=== PATIENT | male | born 1985 | race African-American/Black ===

== ENCOUNTER 2021-08-29 15:46 | Emergency (ER) | payer MEDICAID ==
--- NOTE | 2021-08-29 17:07 | CR ---
INDICATION: sob/hx of asthma and bronchitis TECHNIQUE: Chest 1 view. COMPARISON: None. FINDINGS: Cardiovascular and mediastinum: Heart size and vasculature are normal in caliber and appearance. Mediastinum is within normal limits. Lungs and pleural space: Lungs are clear. No sign of infiltrate or mass. No sign of pleural effusion. No pneumothorax. Bones and soft tissues: No significant findings. IMPRESSION: Unremarkable chest. Dictated by: Cruzito Cordero MD @ 08/29/2021 17:05:53 (Electronically Signed)
--- NOTE | 2021-08-29 17:09 | EDM.PDOC ---
ED HPI GENERAL MEDICAL PROBLEM - General Chief Complaint: Respiratory Problem Stated Complaint: SOB Time Seen by Provider: 08/29/21 16:33 Source of Information: Reports: Patient History Limitations: Reports: No Limitations - History of Present Illness INITIAL COMMENTS - FREE TEXT/NARRATIVE: HISTORY AND PHYSICAL: History of present illness: Patient is a 36-year-old male who presents to the emergency room with complaints of shortness of breath. He states he does have a history of of asthma, he has been out of his medications and feels like his symptoms are due to an exacerba tion. Patient denies any fever, chills, headache, change in vision, syncope or near syncope. Denies any chest pain, back pain or cough. Denies any abdominal pain, nausea, vomiting, diarrhea, constipation or dysuria. Has not noted any blood in urine or stool. Patient has been eating and drinking appropriately. No recent travel or sick contacts. Review of systems: As per history of present illness and below otherwise all systems reviewed and negative. Past medical history: As per history of present illness and as reviewed below otherwise noncontributory. Surgical history: As per history of present illness and as reviewed below otherwise noncontributory. Social history: See social history for further information Family history: As per history of present illness and as reviewed below otherwise noncontributory. Physical exam: General: Well developed and well nourished 36-year-old male. Alert and orientated x 3. Nontoxic in appearance and in no acute distress. Vital signs are stable and have been reviewed by me. Nursing notes were reviewed. HEENT: Atraumatic, normocephalic, pupils equal and reactive bilaterally, negative for conjunctival pallor or scleral icterus, mucous membranes moist, TMs normal bilaterally, throat clear, neck supple, nontender, trachea midline. No drooling or trismus noted. No meningeal signs. No hot potato voice noted. Lungs: Fine expiratory wheezing to auscultation bilaterally. No rales, or rhonchi. Chest nontender. Normal work of breathing, no accessory muscles used. Heart: S1S2, regular rate and rhythm without overt murmur, gallops, or rubs. No JVD. No peripheral edema Abdomen: Soft, nondistended, nontender. Hematologic: No petechiae or purpra. Mucosa appropriate color and normal nail bed color and refill. Extremities: Atraumatic, moves all extremities per self without difficulty or deficits, negative for cords or calf pain. Neurovascular unremarkable. Neuro: Awake, alert, oriented. Cranial nerves II through XII unremarkable. Cerebellum unremarkable. Motor and sensory unremarkable throughout. Exam nonfocal. Psychiatric: Mood and affect are appropriate. Normal thought process. Answering questions appropriately. Please note that the patient was seen and evaluated during the 2019 SARS-CoV-2 novel coronavirus pandemic period. Community viral transmission is ongoing at time of this encounter and the emergency department is operating under pandemic response procedures. Medical Decision Making: Patient is a 36-year-old male who presents to the emergency room with complaints of shortness of breath, concern of an asthma exacerbation. Chest x-ray is unremarkable. Patient declines COVID-19 testing. He states he is out of his rescue inhaler and nebulizer solution. Is requesting refill on this at this time. I have talked with the patient about today's findings, in addition to providing specific details for plan of care. Reassessment at the time of disposition demonstrates that the patient is in no acute distress. The patient is stable for discharge, counseling was provided and we discussed in great detail signs and symptoms that would prompt them to return to the Emergency Department. Medication, follow up and supportive care measures were reviewed and discussed. Voices understanding and is agreeable to plan of care. Denies any further questions or concerns at this time. Diagnostics: Chest x-ray Therapeutics: None Prescription: Prednisone, DuoNeb, albuterol inhaler Impression: Asthma exacerbation Medication refill Plan: 1. You were evaluated today on an emergent basis. Your asthma appears to be ex acerbated. Please take the steroids and use the inhaler as directed. 2. You can alternate Tylenol and ibuprofen as needed for pain and fever management. 3. We encourage you to follow up with your primary care provider and/or recommended specialist in the next few days for re-evaluation and further care/management. 4. If your symptoms should worsen, new symptoms develop or any of the signs and symptoms we discussed should arise please return to the emergency room or call 911 (if needed). Definitive disposition and diagnosis as appropriate pending reevaluation and review of above. - Related Data Allergies Allergy/AdvReac Type Severity Reaction Status Date / Time No Known Allergies Allergy Verified 08/29/21 16:53 Home Meds: Home Meds Albuterol Sulfate 08/29/21 [History] Albuterol Sulfate [Proair Hfa] 2 puff IH Q4H PRN #1 [email or web address] 08/29/21 [Rx] Albuterol/Ipratropium [DuoNeb 3.0-0.5 MG/3 ML] 1 ampule INH Q4HR PRN #1 box 08/29/21 [Rx] predniSONE [Prednisone] 40 mg PO DAILY 4 Days #8 tablet 08/29/21 [Rx] Social & Family History - Tobacco Use Second Hand Smoke Exposure: No - Caffeine Use Caffeine Use: Reports: None - Recreational Drug Use Recreational Drug Use: No ED ROS GENERAL - Review of Systems Review Of Systems: Comprehensive ROS is negative, except as noted in HPI. ED EXAM, GENERAL - Physical Exam Exam: See Below (See dictation) Course - Vital Signs Last Recorded V/S: Last Vital Signs Temp 98 F 08/29/21 16:51 Pulse 89 08/29/21 16:51 Resp 20 08/29/21 16:51 BP 138/73 08/29/21 16:51 Pulse Ox 97 08/29/21 16:51 Departure - Departure Time of Disposition: 17:37 Disposition: Home, Self-Care 01 Clinical Impression: Exacerbation of asthma Qualifiers: Asthma severity: moderate Asthma persistence: persistent Qualified Code(s): J45.41 - Moderate persistent asthma with (acute) exacerbation - Discharge Information Prescriptions: Albuterol/Ipratropium [DuoNeb 3.0-0.5 MG/3 ML] 1 ampule INH Q4HR PRN #1 box PRN Reason: Dyspnea predniSONE [Prednisone] 40 mg PO DAILY 4 Days #8 tablet Albuterol Sulfate [Proair Hfa] 2 puff IH Q4H PRN #1 hfa.[email or web address] PRN Reason: Dyspnea Instructions: Asthma, Adult, [id number] Referrals: PCP,None [Primary Care Provider] - Forms: ED Department Discharge Additional Instructions: The following information is given to patients seen in the emergency department who are being discharged to home. This information is to outline your options for follow-up care. We provide all patients seen in our emergency department with a follow-up referral. The need for follow-up, as well as the timing and circumstances, are variable depending upon the specifics of your emergency department visit. If you don't have a primary care physician on staff, we will provide you with a referral. We always advise you to contact your personal physician following an emergency department visit to inform them of the circumstance of the visit and for follow-up with them and/or the need for any referrals to a consulting specialist. The emergency department will also refer you to a specialist when appropriate. This referral assures that you have the opportunity for follow-up care with a specialist. All of these measure are taken in an effort to provide you with optimal care, which includes your follow-up. Under all circumstances we always encourage you to contact your private physician who remains a resource for coordinating your care. When calling for follow-up care, please make the office aware that this follow-up is from your recent emergency room visit. If for any reason you are refused follow-up, please contact the [facility] Emergency Department at and asked to speak to the emergency department charge nurse. [facility] [address] [place] [id number] [address] Thank you for choosing the [facility] emergency department in [place] for your medical needs today. It was a pleasure caring for you. Today you were seen in the emergency department for asthma flare Your prescription was electronically sent to: [place] [facility] ([facility]) 1. You were evaluated today on an emergent basis. Your asthma appears to be exacerbated. Please take the steroids and use the inhaler as directed. 2. You can alternate Tylenol and ibuprofen as needed for pain and fever management. 3. We encourage you to follow up with your primary care provider and/or recommended specialist in the next few days for re-evaluation and further care/management. 4. If your symptoms should worsen, new symptoms develop or any of the signs and symptoms we discussed should arise please return to the emergency room or call 911 (if needed). Sepsis Event Note (ED) - Evaluation Sepsis Screening Result: No Definite Risk - Focused Exam Vital Signs: Vital Signs Temp Pulse Resp BP Pulse Ox 08/29/21 16:51 98 F 89 20 138/73 97
== END 2021-08-29 17:41 | disposition home or self-care (01) ==
LOC: MW.ED 15:46
DX: J45.41 Moderate persistent asthma with (acute) exacerbation (principal); Z76.0 Encounter for issue of repeat prescription
CPT/HCPCS: 71045; 71045-26; 99284-25

== ENCOUNTER 2022-01-22 18:47 | Emergency (ER) | payer MEDICAID ==
[2022-01-22] MEDS ORDERED: Albuterol/Ipratropium 3.0-0.5 MG/3 ML Neb Soln NEB ONE ×3 (19:25)
[2022-01-22] MEDS ORDERED: Alum Hydro/Mag Hydro/Simeth XS 15 ML, Lidocaine 2% 5 ML PO ONE ×2 (19:26)
[2022-01-22] MEDS ORDERED: predniSONE 20 MG Tab PO ONE (19:26)
== END 2022-01-22 21:29 | disposition home or self-care (01) ==
LOC: MW.ED 18:47
DX: J45.901 Unspecified asthma with (acute) exacerbation (principal); R12 Heartburn
CPT/HCPCS: 99284; A9270; J7620-GY

== ENCOUNTER 2022-04-18 14:48 | Emergency (ER) | payer MEDICAID | END 2022-04-18 15:47 | disposition home or self-care (01) | LOC: MW.ED 14:48 | DX: J45.901 Unspecified asthma with (acute) exacerbation (principal); F17.210 Nicotine dependence, cigarettes, uncomplicated | CPT/HCPCS: 99283 ==

== ENCOUNTER 2023-10-26 08:55 | Emergency (ER) | payer MEDICAID ==
[2023-10-26 09:57] LABS: CORONAVIRUS COVID-19 NAA NEGATIVE (NEGATIVE); INFLUENZA A NAA POSITIVE (NEGATIVE); INFLUENZA B NAA NEGATIVE (NEGATIVE)
== END 2023-10-26 10:46 | disposition home or self-care (01) ==
LOC: MW.ED 08:55
DX: J10.1 Influenza due to other identified influenza virus with other respiratory manifestations (principal); J45.909 Unspecified asthma, uncomplicated; Z20.822 Contact with and (suspected) exposure to COVID-19
CPT/HCPCS: 0240U; 71045; 99283

== ENCOUNTER 2023-11-05 09:45 | Day surgery (SDC) | payer MEDICAID ==
[2023-11-05] MEDS ORDERED: Sodium Chloride 0.9% 1,000 ML IV ONE (10:03)
[2023-11-05 10:16] LABS: HEMATOCRIT 43.7 % (42.0-52.0); HEMOGLOBIN 14.7 g/dL (14.0-18.0); MEAN CORPUSCULAR HEMOGLOBIN 25.9 pg (28.0-32.0); MEAN CORPUSCULAR HGB CONC 33.6 g/dL (32.0-36.0); MEAN CORPUSCULAR VOLUME 76.9 fL (83.0-99.0); MEAN PLATELET VOLUME 9.2 fL (9.4-12.4); PLATELET COUNT,PLT 327 K/uL (150-400); RED BLOOD CELL COUNT 5.68 M/uL (4.52-5.90); WHITE BLOOD CELL COUNT,WBC 12.19 K/uL (3.9-11.3)
[2023-11-05] MEDS ORDERED: Amoxicillin/Clavulanate K 875-125 MG Tab PO ONE (10:40)
[2023-11-05 10:41] LABS: BAND ABSOLUTE MAN 0.12; BAND PERCENT MAN 1 %; BASOPHILS ABSOLUTE MAN 0.12 K/uL (0.00-0.20); BASOPHILS PERCENT MAN 1 % (0-1); LYMPHOCYTES ABSOLUTE MAN 2.32 K/uL (1.00-4.80); LYMPHOCYTES PERCENT MAN 19 % (24-44); MONOCYTES ABSOLUTE MAN 2.32 K/uL (0.00-0.80); MONOCYTES PERCENT MAN 19 % (0-8); REACTIVE LYMPHOCYTES FEW; SEG NEUTROPHILS ABSOLUTE MAN 7.31 K/uL (1.80-7.70); SEG NEUTROPHILS PERCENT MAN 60 % (41-71)
[2023-11-05 10:47] LABS: A/G RATIO 0.9 (0.9-1.6); ALBUMIN 3.6 g/dL (3.4-5.0); BILIRUBIN TOTAL 0.6 mg/dL (0.2-1.0); CALCIUM 9.1 mg/dL (8.5-10.1); CARBON DIOXIDE,CO2 26.1 mmol/L (21.0-32.0); CREATININE 1.3 mg/dL (0.8-1.3); EST CRCL DRUG DOSING (CG) 70.62 mL/min; POTASSIUM,K 4.4 mmol/L (3.5-5.1); PROTEIN TOTAL,TP 7.4 g/dL (6.4-8.2)
[2023-11-05] MEDS ORDERED: Iopamidol 755 MG/ML 500 ML Multipack Bottle IVPUSH STA (10:56)
[2023-11-05] MEDS ORDERED: Piperacillin/Tazobactam 3.375 GM in Sodium Chloride 0.9% 100 ML IV ONE (13:27)
[2023-11-05] MEDS ORDERED: Lactated Ringers 1,000 ML IV SCH ×2 (13:45→15:30)
[2023-11-05] MEDS ORDERED: Ketorolac 30 MG/ML SDV ONE (13:53)
[2023-11-05] MEDS ORDERED: Dexamethasone 4 MG/ML 5 ML MDV ONE (13:53)
[2023-11-05] MEDS ORDERED: Lidocaine 2% 11 ML Jelly Filled Syringe ONE (13:53)
[2023-11-05] MEDS ORDERED: Lidocaine 2% 5 ML SDV ONE (13:53)
[2023-11-05] MEDS ORDERED: Propofol 200 MG/20 ML SDV ONE (13:53)
[2023-11-05] MEDS ORDERED: fentaNYL 100 MCG/2 ML SDV ONE (13:53)
[2023-11-05] MEDS ORDERED: Ondansetron 4 MG/2 ML SDV ONE (13:53)
[2023-11-05] MEDS ORDERED: Metoclopramide 10 MG/2 ML SDV IVPUSH PRN (14:04)
[2023-11-05] MEDS ORDERED: HYDROmorphone 1 MG/ML Syringe IVPUSH PRN (14:04)
[2023-11-05] MEDS ORDERED: Albuterol 0.083% 2.5 MG/3 ML Neb Soln NEB PRN ×2 (14:04→16:16)
[2023-11-05] MEDS ORDERED: Naloxone 0.4 MG/ML SDV IVPUSH PRN (14:04)
[2023-11-05] MEDS ORDERED: fentaNYL 50 MCG/ML SDV IVPUSH PRN (14:04)
[2023-11-05] MEDS ORDERED: Ondansetron 4 MG/2 ML SDV IVPUSH PRN (14:04)
[2023-11-05] MEDS ORDERED: Morphine 2 MG/ML SYRINGE IVPUSH PRN ×2 (14:04→15:34)
[2023-11-05] MEDS ORDERED: droPERidol 5 MG/2 ML SDV IVPUSH PRN (14:04)
[2023-11-05] MEDS ORDERED: Acetaminophen/HYDROcodone 325-5 MG Tab PO PRN (15:33)
== END 2023-11-05 18:05 | disposition home or self-care (01) ==
LOC: MW.ED 09:45 → MW.SDS 13:51 → MW.MS 13:53 → MW.SDS 18:05
PROVIDERS: ATTEND Surgery
DX: K61.1 Rectal abscess (principal); K61.0 Anal abscess; J45.909 Unspecified asthma, uncomplicated; F17.210 Nicotine dependence, cigarettes, uncomplicated; Z79.899 Other long term (current) drug therapy
CPT/HCPCS: 36415; 46040; 74177; 80053; 85025; 87070; 87075; 87077; 87186; 87205; 96361; 96365; 99284; A9270; J0131; J1885; J2543; J2704; J3010; J3490; J7030; Q9967; 00902; J1100; J2405; J7620-GY

== ENCOUNTER 2024-08-27 11:24 | Emergency (ER) | payer SELFPAY ==
[2024-08-27] MEDS: Sodium Chloride 0.9% 10 ML Syringe FLUSH PRN (13:01)
[2024-08-27] MEDS: Morphine 4 MG/ML Syringe IVPUSH ONE ×2 (13:01→15:28)
[2024-08-27] MEDS: Sodium Chloride 0.9% 2.5 ML Syringe FLUSH PRN (13:01)
[2024-08-27 13:02] LABS: BASOPHILS ABSOLUTE AUTO 0.02 K/uL (0.00-0.20); BASOPHILS PERCENT AUTO 0.2 % (0.0-1.0); EOSINOPHILS PERCENT AUTO 0.9 % (0.0-6.0); HEMATOCRIT 42.3 % (42.0-52.0); IMMATURE GRAN ABSOLUTE AUTO 0.02 K/uL (0.00-0.05); IMMATURE GRAN PERCENT AUTO 0.2 % (0.0-0.4); LYMPHOCYTES ABSOLUTE AUTO 1.74 K/uL (1.00-4.80); MEAN CORPUSCULAR HEMOGLOBIN 25.4 pg (28.0-32.0); MEAN CORPUSCULAR HGB CONC 33.1 g/dL (32.0-36.0); MEAN CORPUSCULAR VOLUME 76.8 fL (83.0-99.0); MEAN PLATELET VOLUME 9.1 fL (9.4-12.4); MONOCYTES ABSOLUTE AUTO 1.01 K/uL (0.00-0.80); MONOCYTES PERCENT AUTO 9.3 % (0.0-8.0); NEUTROPHILS ABSOLUTE AUTO 7.96 K/uL (1.80-7.70); NEUTROPHILS PERCENT AUTO 73.4 % (41.0-71.0); PLATELET COUNT,PLT 219 K/uL (150-400); RED BLOOD CELL COUNT 5.51 M/uL (4.52-5.90); WHITE BLOOD CELL COUNT,WBC 10.85 K/uL (3.9-11.3)
[2024-08-27 13:18] LABS: INR 1.03 (0.86-1.11)
[2024-08-27] MEDS: Sodium Chloride 0.9% 1,000 ML IV ONE (13:22)
[2024-08-27 13:39] LABS: LACTIC ACID 0.7 mmol/L (0.4-2.0)
[2024-08-27 13:45] LABS: A/G RATIO 1.1 (0.9-1.6); ALBUMIN 3.9 g/dL (3.4-5.0); BILIRUBIN TOTAL 0.7 mg/dL (0.2-1.0); CALCIUM 9.5 mg/dL (8.5-10.1); CARBON DIOXIDE,CO2 28.5 mmol/L (21.0-32.0); CREATININE 1.2 mg/dL (0.8-1.3); EST CRCL DRUG DOSING (CG) 83.65 mL/min; POTASSIUM,K 4.4 mmol/L (3.5-5.1); PROTEIN TOTAL,TP 7.3 g/dL (6.4-8.2)
[2024-08-27] MEDS: Iopamidol 755 MG/ML 500 ML Multipack Bottle IVPUSH STA (14:06)
[2024-08-27 15:11] LABS: APPEARANCE,URINE CLEAR; BILIRUBIN,URINE NEGATIVE (NEGATIVE); COLOR,URINE YELLOW; GLUCOSE,URINE NEGATIVE (NEGATIVE); KETONES,URINE NEGATIVE (NEGATIVE); LEUKOCYTE ESTERASE,URINE NEGATIVE (NEGATIVE); NITRITE,URINE NEGATIVE (NEGATIVE); OCCULT BLOOD,URINE NEGATIVE (NEGATIVE); PROTEIN,URINE NEGATIVE (NEGATIVE); UROBILINOGEN,URINE 0.2 EU/dL (<2.0)
[2024-08-27] MEDS: Ampicillin/Sulbactam Na 3 GM in Sodium Chloride 0.9% 100 ML IV ONE (15:59)
== END 2024-08-27 16:26 | disposition home or self-care (01) ==
LOC: MW.ED 11:24
DX: K61.1 Rectal abscess (principal); J45.909 Unspecified asthma, uncomplicated; Z79.899 Other long term (current) drug therapy
CPT/HCPCS: 36415; 74177; 80053; 81003; 83605; 83690; 85025; 85610; 96361; 96365; 96375; 96376; 99284; J0295; J2270; J3490; J7030; Q9967

== ENCOUNTER 2025-01-20 16:22 | Emergency (ER) | payer SELFPAY ==
[2025-01-20] MEDS: Albuterol/Ipratropium 3.0-0.5 MG/3 ML Neb Soln NEB ONE (19:14)
== END 2025-01-20 19:29 | disposition home or self-care (01) ==
LOC: MW.ED 16:22
DX: J21.9 Acute bronchiolitis, unspecified (principal); Z79.51 Long term (current) use of inhaled steroids; Z75.8 Other problems related to medical facilities and other health care
CPT/HCPCS: 71045; 87428; 99284; J7620; 99283; A9270-GY

== ENCOUNTER 2025-06-12 08:40 | Emergency (ER) | payer BC ==
[2025-06-12] MEDS ORDERED: Sodium Chloride 0.9% 2.5 ML Syringe FLUSH PRN (08:56)
[2025-06-12] MEDS ORDERED: Sodium Chloride 0.9% 10 ML Syringe FLUSH PRN (08:56)
[2025-06-12 09:00] LABS: BASOPHILS ABSOLUTE AUTO 0.02 K/uL (0.00-0.20); BASOPHILS PERCENT AUTO 0.2 % (0.0-1.0); EOSINOPHILS ABSOLUTE AUTO 0.21 K/uL (0.00-0.45); EOSINOPHILS PERCENT AUTO 2.4 % (0.0-6.0); IMMATURE GRAN ABSOLUTE AUTO 0.02 K/uL (0.00-0.05); IMMATURE GRAN PERCENT AUTO 0.2 % (0.0-0.4); LYMPHOCYTES ABSOLUTE AUTO 2.81 K/uL (1.00-4.80); LYMPHOCYTES PERCENT AUTO 31.8 % (24.0-44.0); MEAN PLATELET VOLUME 9.0 fL (9.4-12.4); MONOCYTES ABSOLUTE AUTO 1.07 K/uL (0.00-0.80); MONOCYTES PERCENT AUTO 12.1 % (0.0-8.0); NEUTROPHILS ABSOLUTE AUTO 4.70 K/uL (1.80-7.70); NEUTROPHILS PERCENT AUTO 53.3 % (41.0-71.0); NRBC ABSOLUTE 0.00 K/uL (0.00-0.02); NRBC PERCENT 0.0 /100WBC (0.0-0.2); PLATELET COUNT,PLT 244 K/uL (150-400); RED BLOOD CELL COUNT 5.51 M/uL (4.52-5.90); WHITE BLOOD CELL COUNT,WBC 8.83 K/uL (3.9-11.3)
[2025-06-12 09:42] LABS: A/G RATIO 1.2 (0.9-1.6); ALANINE AMINOTRANSFERASE,ALT 25 IU/L (14-63); ASPARTATE AMNIOTRANSFERASE,AST 14 IU/L (15-37); BILIRUBIN TOTAL 0.3 mg/dL (0.2-1.0); BLOOD UREA NITROGEN,BUN 17 mg/dL (7.0-18.0); CARBON DIOXIDE,CO2 26.5 mmol/L (21.0-32.0); CHLORIDE,CL 106 mmol/L (98-107); CREATININE 1.2 mg/dL (0.8-1.3); EST CRCL DRUG DOSING (CG) 74.97 mL/min; GLUCOSE RANDOM 110 mg/dL (74-106); POTASSIUM,K 4.0 mmol/L (3.5-5.1); PRO B-TYPE NATRIUR PEPT,BNPPRO 5 pg/mL (0-125); PROTEIN TOTAL,TP 7.1 g/dL (6.4-8.2); SODIUM,NA 143 mmol/L (136-148)
[2025-06-12 09:43] LABS: APPEARANCE,URINE CLEAR; GLUCOSE,URINE NEGATIVE (NEGATIVE); OCCULT BLOOD,URINE NEGATIVE (NEGATIVE)
[2025-06-12 09:44] LABS: ESTIMATED GFR 77 mL/min (>60)
[2025-06-12] MEDS: Ketorolac 30 MG/ML SDV IVPUSH ONE (11:17)
== END 2025-06-12 11:24 | disposition home or self-care (01) ==
LOC: MW.ED 08:40
DX: R10.9 Unspecified abdominal pain (principal); J45.909 Unspecified asthma, uncomplicated; F17.210 Nicotine dependence, cigarettes, uncomplicated; Z79.51 Long term (current) use of inhaled steroids
CPT/HCPCS: 36415; 71046; 74176; 80053; 81003; 83690; 83880; 84484; 85025; 96374; 99284; A9270; J1885; 99283